=== PATIENT | male | born 1985 | race Two or more races ===

== ENCOUNTER 2021-04-11 15:44 | Emergency (ER) | payer OTHER ==
[~2021-04-11] VITALS: Ht 182.9 cm; Wt 70.3 kg
[2021-04-11 15:44] VITALS: BP 138/98
--- NOTE | 2021-04-11 16:20 | NUR ---
PT SEEN AND EXAMINED BY ESTUARDO BANERJEE.
--- NOTE | 2021-04-11 16:40 | NUR ---
PT IS BACK FROM THE CT SCAN.
[2021-04-11] MEDS ORDERED: IBUPROFEN 600 MG TABLET PO ONE (17:00)
[2021-04-11] MEDS ORDERED: IBUPROFEN 600 MG TABLET ONE (17:04)
--- NOTE | 2021-04-11 17:24 | NUR ---
RAJEEV WRAP AND CRUTCHES PROVIDED.
--- NOTE | 2021-04-11 17:39 | NUR ---
Patient given written and verbal discharge instructions. Patient verbalizes understanding of instructions. Patient is ambulatory with steady gait. Refuses offer of intermediate placement. Patient given list of available shelters in surrounding area.
== END 2021-04-11 17:41 | disposition home or self-care (01) ==
LOC: ER 15:46
DX: S00.03XA Contusion of scalp, initial encounter (principal); M25.571 Pain in right ankle and joints of right foot; F19.10 Other psychoactive substance abuse, uncomplicated; F17.210 Nicotine dependence, cigarettes, uncomplicated; Z60.2 Problems related to living alone; Z59.0 Homelessness; W17.89XA Other fall from one level to another, initial encounter; Y93.89 Activity, other specified; Y92.89 Other specified places as the place of occurrence of the external cause; Y99.8 Other external cause status
CPT/HCPCS: 70450-TC; 73610-TC